=== PATIENT | male | born 1955 | race Caucasian/White ===

== ENCOUNTER 2022-04-12 13:29 | Outpatient (CLI) | payer BC, SELFPAY ==
--- NOTE | ~2022-04-12 | MR_ITS ---
EXAMINATION: MR brain/brain stem wo con DATE: 04/12/2022 14:14 INDICATION: Loss of balance. Ataxia. Swaying to the right while walking. TECHNIQUE: Magnetic resonance imaging (MRI) of the brain and brainstem was performed without intraven ous contrast. COMPARISON: None. FINDINGS: There are scattered areas of nonspecific increased T2-weighted signal intensity in the cere bral white matter, which is within normal limits for the patient's age. There is no intracranial hemo rrhage, acute infarction, or abnormal intracranial mass lesion. The ventricles are normal in size. Th ere is mild mucosal thickening in the paranasal sinuses. There are likely changes of ocular lens repl acement surgeries. The mastoid air cells are normal. IMPRESSION: 1. Normal aging brain. Reviewed, dictated and finalized at location A. L [employer] IMPRESSION: 1. Normal aging brain.
== END 2022-04-12 13:30 | disposition home or self-care (01) ==
PROVIDERS: PCP Registered Nurse; Visit Provider Student in an Organized Health Care Education/Training Program
DX: R26.89 Other abnormalities of gait and mobility (principal)
CPT/HCPCS: 70551